=== PATIENT | female | born 1980 | race Caucasian/White ===

== ENCOUNTER 2024-08-10 10:49 | Emergency (ER) | payer MEDICAID, SELFPAY ==
[2024-08-10 10:55] VITALS: BP 118/72; PULSE 72; RESP 14; TEMP 36.1; O2SAT 98; BMI 30.1
--- NOTE | 2024-08-10 11:37 | ED.ABDPAIN ---
HPI - Abdominal Pain <Jenifer Sheets PA-C - Last Filed: 08/10/24 13:52> General Chief Complaint: Abdominal Pain Stated Complaint: Constipated x7 days Time Seen by Provider: 08/10/24 11:27 Source: patient Mode of arrival: Ambulatory History of Present Illness HPI narrative: Ms. Crisostomo is a very pleasant 44-year-old female with a past medical history of cholecystectomy, daily suboxone, methamphetmaine use sober since 08/01 who presents to the emergency department for constipation x7 days. Patient reports she has struggled with constipation for many years and she normally has a bowel movement every 3 days however she has not had a normal bowel movement in the last 7 days. She has only been having small firm bowel movements, she had 2 small firm bowel movements yesterday. Last night she took a dose of MiraLax and this morning she took a dose of Colace. She denies any dark or bloody stools, no abdominal pain or rectal pain. She denies nausea, vomiting, diarrhea, fevers, chills, flu-like symptoms, dysuria, no vaginal discomfort. She does report that she has some mild discomfort in her suprapubic region but denies any pain and states pain is 0/10. Related Data Previous Rx's Medication Instructions Recorded albuterol sulfate 90 mcg/actuation 1 puff INH SEE INSTRUCTIONS #1 inh 03/23/16 aerosol inhaler (Ventolin HFA) ibuprofen 600 mg tablet 600 mg PO Q6HP PRN #30 tabs 03/23/16 buprenorphine 8 mg-naloxone 2 mg 0 sublingual SEE INSTRUCTIONS #45 09/30/16 sublingual tablet tabs lactulose 10 gram/15 mL oral 20 g (30 mL) PO DAILY 7 days #210 08/10/24 solution mL Allergies Allergy/AdvReac Type Severity Reaction Status Date / Time Penicillins [PENICILLINS] Allergy Mild Verified 08/10/24 10:57 codeine Allergy Verified 08/10/24 10:57 Review of Systems <Jenifer Sheets PA-C - Last Filed: 08/10/24 13:52> Review of Systems ROS Unobtainable: All systems reviewed & are unremarkable except as noted in HPI and below Patient History <Jenifer Sheets PA-C - Last Filed: 08/10/24 13:52> Social History Smoking Status: Unknown if ever smoked Smoking Status: Unknown if ever smoked tobacco type: vaping Exam <Jenifer Sheets PA-C - Last Filed: 08/10/24 13:52> Narrative Exam Narrative: GENERAL: 44 year old patient appears stated age. Well-developed patient, in no acute distress. HEAD: Atraumatic. Normocephalic. EYES: No scleral icterus. No injection or drainage. NECK: Cervical ROM intact. CARDIOVASCULAR: Regular rate and rhythm. RESPIRATORY: ?Nonlabored respirations. ?Speaking in clear, full sentences. ?Clear to auscultation. Breath sounds equal bilaterally. No wheezes, rales, or rhonchi. ? GASTROINTESTINAL: Abdomen soft, non-tender, nondistended. BS present. No rebound, rigidity, guarding. BACK: No flank tenderness. NEURO: AOx3. ?Clear speech. ?Moves all 4 extremities appropriately. SKIN: No rash or erythema of visible areas Initial Vital Signs Initial Vital Signs: Vital Signs Temperature 97.0 F L 08/10/24 10:55 Pulse Rate 72 08/10/24 10:55 Respiratory Rate 14 08/10/24 10:55 Blood Pressure 118/72 08/10/24 10:55 Pulse Oximetry 98 08/10/24 10:55 Oxygen Delivery Method Room Air 08/10/24 10:55 <Stoney Velazco MD - Last Filed: 08/15/24 07:53> Initial Vital Signs Initial Vital Signs: Vital Signs Temperature 97.0 F L 08/10/24 10:55 Pulse Rate 72 08/10/24 10:55 Respiratory Rate 14 08/10/24 10:55 Blood Pressure 118/72 08/10/24 10:55 Pulse Oximetry 98 08/10/24 10:55 Oxygen Delivery Method Room Air 08/10/24 10:55 Course <Jenifer Sheets PA-C - Last Filed: 08/10/24 13:52> Orders Ordered: Discontinued Medications Lactulose (Lactulose 20 Gm/30 Ml Solution) 20 gm PO NOW ONE Stop: 08/10/24 11:28 Last Admin: 08/10/24 11:57 Dose: 20 gm Documented By: RB Vital Signs Vital signs: Vital Signs - 8 hr 08/10/24 10:55 08/10/24 12:53 Temperature 97.0 F L 98.9 F Pulse Rate 72 78 Respiratory Rate 14 18 Blood Pressure 118/72 121/67 Pulse Oximetry 98 99 Oxygen Delivery Method Room Air Room Air <Stoney Velazco MD - Last Filed: 08/15/24 07:53> Orders Ordered: Discontinued Medications Lactulose (Lactulose 20 Gm/30 Ml Solution) 20 gm PO NOW ONE Stop: 08/10/24 11:28 Last Admin: 08/10/24 11:57 Dose: 20 gm Documented By: RB Vital Signs Vital signs: Vital Signs - 8 hr 08/10/24 10:55 08/10/24 12:53 Temperature 97.0 F L 98.9 F Pulse Rate 72 78 Respiratory Rate 14 18 Blood Pressure 118/72 121/67 Pulse Oximetry 98 99 Oxygen Delivery Method Room Air Room Air MDM - Abdominal Pain <Jenifer Sheets PA-C - Last Filed: 08/10/24 13:52> Medical Records Medical records narrative: None available for review Lab Data Labs: Lab Results 08/10/24 Range/Units 11:43 Urine RBC 0-1/hpf (0-5/HPF) Urine WBC None seen (0-5/HPF) Ur Squamous Epith Cells 0-1 /hpf (0-5/HPF) Urine Bacteria Occasional (0-1) (None) Ur Culture Indicated? Specimen cultured Vol Urine Centrifuged 10ml (spun) Urine Test Negative (Negative) Point of care testing: Urine Dip Bedside Urine Glucose Negative Bedside Urine Bilirubin - Negative Bedside Urine Ketone - Negative Urine Specific [place] 1.020 Bedside Urine Occult Blood - Negative Bedside Urine pH 6.0 Bedside Urine Protein - Negative Bedside Urine Urobilinogen - Negative Bedside Urine Nitrite - Negative Bedside Urine Leukocytes +/- 15 Esterase MDM Narrative Medical decision making narrative: 44-year-old female with a past medical history of cholecystectomy, daily suboxone, methamphetmaine use sober since 08/01 who presents to the emergency department for constipation x7 days. Differential diagnosis includes but not limited to functional constipation, constipation due to stimulant withdrawal, cystitis, fecal impaction, etc. On exam the patient is in no acute distress, nontoxic-appearing, all vital signs within normal limits. She has having no abdominal pain, rectal pain, nausea vomiting or diarrhea. Abdominal exam is benign, abdomen is soft, nontender with no rigidity rebound guarding or distention. She is still passing flatus and small amounts of stool. We will check POC UA and , treat with lactulose. This time there are no signs concerning for a surgical abdomen or bowel obstruction. We will trial course of lactulose x1 week then switch to maintenance MiraLax dosing, increase hydration exercise and fiber. Discussed with the patient ED return precautions including returning to the ED immediately for severe pain, bloody stools, fevers, vomiting or other concerns. U preg neg. UA reveals 0-1 RBC 0-1 squamous epithelial, 0-1 bacteria, not concerning for infection, urine culture sent. Patient received 1st dose of lactulose in the emergency department and feels like she is having some improved movement of her bowels. Care plan discussed, ED return precautions discussed, she verbalized understanding all information is happy with the plan. She is stable for discharge home, abdominal exam continues to be benign. <Stoney Velazco MD - Last Filed: 08/15/24 07:53> Lab Data Labs: Lab Results 08/10/24 Range/Units 11:43 Urine RBC 0-1/hpf (0-5/HPF) Urine WBC None seen (0-5/HPF) Ur Squamous Epith Cells 0-1 /hpf (0-5/HPF) Urine Bacteria Occasional (0-1) (None) Ur Culture Indicated? Specimen cultured Vol Urine Centrifuged 10ml (spun) Urine Test Negative (Negative) Point of care testing: Urine Dip Bedside Urine Glucose Negative Bedside Urine Bilirubin - Negative Bedside Urine Ketone - Negative Urine Specific [place] 1.020 Bedside Urine Occult Blood - Negative Bedside Urine pH 6.0 Bedside Urine Protein - Negative Bedside Urine Urobilinogen - Negative Bedside Urine Nitrite - Negative Bedside Urine Leukocytes +/- 15 Esterase Discharge Plan Departure Patient Disposition: Home Clinical Impression: Constipation Qualifiers: Constipation type: unspecified constipation type Qualified Code(s): K59.00 - Constipation, unspecified Instructions: DI for Constipation Activity Restrictions/Additional Instructions: Dear Ms. Crisostomo, Thank you for coming to the emergency department. Today you were evaluated for constipation for the last week. Your physical exam is very reassuring at this time. I would like you to use the prescribed stool softener for the next week, then switch over to MiraLax 17 g once daily for at least the next month or until your bowel movements are completely normal. It is very important to increase hydration, exercise, and fiber in your diet as well. Your urine test was negative for infection today, the urine has been sent for culture and you will be called if there is any need for antibiotics. Please return to the emergency department immediately if you develop pain, bloody or black stools, vomiting, fevers or any other concerns. Please follow up with your primary care doctor within the next 2-3 days for ER follow-up. (If you do not have a PCP you can call [phone]. ?to schedule an appointment with an [facility] Primary Care Provider) IF YOU DEVELOP ANY NEW OR WORSENING SYMPTOMS, RETURN TO THE ER! Please read the attached instructions, they highlight more specific treatments and interventions for you at home. Thank you for letting me participate in your care, Jenifer Sheets PA-C Prescriptions: New lactulose 10 gram/15 mL solution 20 g PO DAILY 7 Days Qty: 210 0RF No Action ibuprofen 600 MG tablet 600 mg PO Q6HP PRNQty: 30 0RF albuterol sulfate [Ventolin HFA] 90 MCG/PUFF HFA aerosol inhaler 1 puff INH SEE INSTRUCTIONS Qty: 1 2RF buprenorphine-naloxone 8 MG/2 MG tablet, sublingual 0 Sublingual SEE INSTRUCTIONS Qty: 45 2RF Referrals: Vazquez Foreman MD [Primary Care Provider] - Stand Alone Forms: Patient Portal/API/Survey ED Sign-out <Stoney Velazco MD - Last Filed: 08/15/24 07:53> [facility] I was immediately available in the department for consultation. ?This documentation has been reviewed and I agree with assessment and plan. Supervised by Stoney Velazco MD
[2024-08-10] MEDS: LACTULOSE 20 GM/30 ML SOLUTION PO (11:57)
[2024-08-10 12:07] LABS: Pregnancy Test Urine Negative (Negative)
[2024-08-10 12:41] LABS: Bacteria Urine Occasional (0-1); RBC Urine 0-1/HPF (0-5/HPF); Squamous Epithelial Cell Urine 0-1 /HPF (0-5/HPF); Urine Volume 10mL (spun); WBC Urine None Seen (0-5/HPF)
[2024-08-10 12:42] LABS: Culture Indicated Urine Specimen Cultured
[2024-08-10 12:53] VITALS: BP 121/67; PULSE 78; RESP 18; TEMP 37.2; O2SAT 99
== END 2024-08-10 12:54 | disposition home or self-care (01) ==
PROVIDERS: Emergency Provider Physician Assistant; PCP Specialist
DX: F15.11 Other stimulant abuse, in remission (principal); K59.00 Constipation, unspecified; Z90.49 Acquired absence of other specified parts of digestive tract
CPT/HCPCS: 81003; 81015; 81025; 87086; 99283

== ENCOUNTER 2024-10-02 22:08 | Emergency (ER) | payer OTHER, SELFPAY ==
[2024-10-02 22:11] VITALS: BP 101/63; PULSE 75; RESP 16; TEMP 36.6; O2SAT 98; BMI 32.1
[2024-10-02 23:17] VITALS: O2SAT 100
[2024-10-02 23:18] VITALS: BP 100/59; RESP 17; O2SAT 96
--- NOTE | 2024-10-03 00:30 | ED_ITS ---
HPI - Chest Pain General Chief Complaint: Chest Pain Stated Complaint: Lower L Side Abdominal Pain Time Seen by Provider: 10/02/24 22:32 Source: patient Mode of arrival: Ambulatory History of Present Illness HPI narrative: 44-year-old female history of cholecystectomy, , daily Suboxone use and amphetamine use sober since 08/01 and most recent history of mental hospitalization recently discharged missed her boat [place] ride dat to [place] here for no active complaints just a bed until she can get to the [place] in the morning. Patient denies homicidal, suicidal ideation, seeing things, or hearing voices. Other than what is stated 14 point review of system is negative. Related Data Previous Rx's ?Medication ?Instructions ?Recorded albuterol sulfate 90 mcg/actuation 1 puff INH SEE INST RUCTIONS #1 inh 03/23/16 aerosol inhaler (Ventolin HFA) ibuprofen 600 mg tablet 600 mg PO Q6HP PRN #30 tabs 03/23/16 buprenorphine 8 mg-naloxone 2 mg 0 sublingual SEE INST RUCTIONS #45 09/30/16 sublingual tablet tabs Allergies Allergy/AdvReac Type Severity Reaction Status Date / Time Penicillins (PENICILLINS) Allergy Mild CHILDHOOD Verified 10/02/24 22:11 codeine AdvReac ITCHING Verified 10/02/24 22:11 Review of Systems Review of Systems ROS Unobtainable: All systems reviewed & are unremarkable except as noted in HPI and below Patient History tobacco type: vaping Exam Narrative Exam Narrative: GENERAL: [44] year old patient appears stated age. Well-developed patient, in mild distress. HEAD: Atraumatic. Normocephalic. EYES: Pupils equal round and reactive. Extraocular motions intact. No scleral icterus. No injection or drainage. CARDIOVASCULAR: Regular rate and rhythm without murmurs, gallops, or rubs. RESPIRATORY: Clear to auscultation. Breath sounds equal bilaterally. No wheezes, rales, or rhonchi. EXTREMITIES: No edema or joint tenderness. BACK: Nontender without deformity or crepitance. No flank tenderness. NEURO: AOx3. GCS 15 nonfocal neuro exam Psych: Appropriate cooperative good eye contact pleasant judgment and thought processes normal SKIN: No rash or erythema of visible areas Initial Vital Signs Initial Vital Signs: Vital Signs Temperature 97.9 F 10/02/24 22:11 Pulse Rate 75 10/02/24 22:11 Respiratory Rate 16 10/02/24 22:11 Blood Pressure 101/63 10/02/24 22:11 Pulse Oximetry 98 10/02/24 22:11 Oxygen Delivery Method Room Air 10/02/24 22:11 Course Vital Signs Vital signs: Vital Signs - 8 hr 10/02/24 22:11 Temperature 97.9 F Pulse Rate 75 Respiratory Rate 16 Blood Pressure 101/63 Pulse Oximetry 98 Oxygen Delivery Method Room Air MDM - Chest Pain MDM Narrative Medical decision making narrative: Vital signs, nurse triage note, medication list, previous ER visits, and all imaging studies reviewed. Differential diagnosis homelessness, substance polysubstance abuse, screening exam. Discharge Plan Departure Patient Disposition: Home Clinical Impression: Encounter for medical screening examination Activity Restrictions/Additional Instructions: Return with new or worsening symptoms. Prescriptions: No Action ibuprofen 600 MG tablet 600 mg PO Q6HP PRNQty: 30 0RF albuterol sulfate [Ventolin HFA] 90 MCG/PUFF HFA aerosol inhaler 1 puff INH SEE INSTRUCTIONS Qty: 1 2RF buprenorphine-naloxone 8 MG/2 MG tablet, sublingual 0 Sublingual SEE INSTRUCTIONS Qty: 45 2RF Referrals: Vazquez Foreman MD [Primary Care Provider, Family Practice] Stand Alone Forms: Patient Portal/API
[2024-10-03 00:43] VITALS: BP 102/61; PULSE 62; RESP 16; O2SAT 94
== END 2024-10-03 00:49 | disposition home or self-care (01) ==
PROVIDERS: Emergency Provider Family Medicine; PCP Specialist
DX: Z00.8 Encounter for other general examination (principal)
CPT/HCPCS: 99281